=== PATIENT | female | born 1945 | race Caucasian/White ===

== ENCOUNTER 2021-07-21 18:43 | Observation (INO) | payer MEDICARE ==
[2021-07-21 20:35] VITALS: BMI 20.2
[2021-07-21] MEDS ORDERED: Morphine 2 MG/ML VIAL SLOW IVP PRN (21:12)
[2021-07-21] MEDS ORDERED: Piperacillin/Tazobactam 3.375 GM in Sodium Chloride 0.9% 100 ML IVPB SCH ×2 (21:15→22:00)
[2021-07-21] MEDS ORDERED: Morphine 4 MG/ML VIAL SLOW IVP PRN (21:23)
[2021-07-21] MEDS: Morphine 4 MG/ML VIAL SLOW IVP PRN (21:40)
[2021-07-21] MEDS: Lactated Ringer's 1,000 ML IV SCH (21:41)
[2021-07-21] MEDS ORDERED: traZODone HCl 50 MG TAB PO SCH (21:45)
[2021-07-22] MEDS: Morphine 4 MG/ML VIAL SLOW IVP PRN (04:07)
[2021-07-22 04:48] LABS: #Eosinphils 0.5 thou/uL (0.0-0.7); #Lymphocytes 1.6 thou/uL (1.20-3.40); #Monocytes 0.7 thou/uL (0.11-0.59); #Neutrophils 2.5 thou/uL (1.40-6.50); %Basophils 0.9 % (0.0-1.0); %Eosinophils 8.7 % (0.0-10.0); %Lymphocytes 30.2 % (21.0-51.0); %Monocytes 13.3 % (0.0-10.0); %Neutrophils 46.9 % (42.0-75.0); Hemoglobin 11.6 g/dL (12.0-16.0); Mean Corpuscular HGB CONC 33.9 g/dL (32.0-36.0); Mean Corpuscular Hemoglobin 31.1 pg (27.0-31.0); Mean Corpuscular Volume 91.9 fL (78.0-98.0); Mean Platelet Volume 7.1 fL (7.4-10.4); Platelet Count 194 thou/uL (130-400); RBC Distribution Width 11.3 % (11.5-14.5); Red Blood Cell (RBC) Count 3.73 mill/uL (4.20-5.40); White Blood Cell (WBC) Count 5.3 thou/uL (4.8-10.8)
[2021-07-22 05:18] LABS: Anion Gap 13 mmol/L (10-20); BUN (Urea Nitrogen) 12 mg/dL (9.8-20.1); Calc. Creatinine Clearance 54 mL/min (70-130); Calcium 8.8 mg/dL (7.8-10.44); Carbon Dioxide 23 mmol/L (23-31); Chloride 105 mmol/L (98-107); Glucose 79 mg/dL (83-110); Potassium 3.6 mmol/L (3.5-5.1); Sodium 137 mmol/L (136-145)
[2021-07-22] MEDS: Piperacillin/Tazobactam 3.375 GM in Sodium Chloride 0.9% 100 ML IVPB SCH ×3 (06:02→22:17)
[2021-07-22] MEDS: Lactated Ringer's 1,000 ML IV SCH ×3 (06:02→22:16)
[2021-07-22] MEDS: Famotidine/PF 20 mg/2ml Vial SLOW IVP SCH ×2 (08:12→20:30)
[2021-07-22] MEDS: diphenhydrAMINE 50 MG/ML VIAL IVP PRN (08:17)
[2021-07-22] MEDS ORDERED: FLU VACC QS2021-22(65YR UP)/PF 240 MCG/0.7 ML SYRINGE IM ONE (09:00)
[2021-07-22] MEDS ORDERED: Acetaminophen 325 MG TAB PO PRN (13:47)
[2021-07-22] MEDS: Ketorolac Tromethamine 30 MG/ML VIAL IVP SCH ×2 (14:39→20:30)
[2021-07-22] MEDS: traZODone HCl 50 MG TAB PO SCH (20:30)
[2021-07-22] MEDS: Ondansetron PF 4 MG/2 ML Vial IVP PRN (20:49)
[2021-07-23] MEDS: Ketorolac Tromethamine 30 MG/ML VIAL IVP SCH ×3 (04:50→21:20)
[2021-07-23] MEDS: Piperacillin/Tazobactam 3.375 GM in Sodium Chloride 0.9% 100 ML IVPB SCH (04:50)
[2021-07-23 05:07] LABS: #Basophils 0.1 thou/uL (0.0-0.2); #Eosinphils 0.4 thou/uL (0.0-0.7); #Lymphocytes 1.8 thou/uL (1.20-3.40); #Monocytes 0.5 thou/uL (0.11-0.59); #Neutrophils 1.7 thou/uL (1.40-6.50); %Basophils 1.5 % (0.0-1.0); %Eosinophils 9.5 % (0.0-10.0); %Lymphocytes 39.4 % (21.0-51.0); %Neutrophils 37.6 % (42.0-75.0); Hemoglobin 11.3 g/dL (12.0-16.0); Mean Corpuscular HGB CONC 33.8 g/dL (32.0-36.0); Mean Corpuscular Hemoglobin 31.3 pg (27.0-31.0); Mean Corpuscular Volume 92.8 fL (78.0-98.0); Mean Platelet Volume 6.8 fL (7.4-10.4); Platelet Count 194 thou/uL (130-400); RBC Distribution Width 11.2 % (11.5-14.5); Red Blood Cell (RBC) Count 3.62 mill/uL (4.20-5.40); White Blood Cell (WBC) Count 4.4 thou/uL (4.8-10.8)
[2021-07-23] MEDS: Famotidine/PF 20 mg/2ml Vial SLOW IVP SCH ×2 (07:50→21:00)
[2021-07-23] MEDS: Ondansetron PF 4 MG/2 ML Vial IVP PRN ×2 (07:50→13:16)
[2021-07-23] MEDS: Lactated Ringer's 1,000 ML IV SCH (10:44)
[2021-07-23] MEDS ORDERED: Bisacodyl 10 MG SUPP PR PRN (16:31)
[2021-07-23] MEDS: Amoxicillin/Potassium Clav 500 MG TAB PO SCH (20:59)
[2021-07-23] MEDS: traZODone HCl 50 MG TAB PO SCH (21:00)
[2021-07-24] MEDS: diphenhydrAMINE 50 MG/ML VIAL IVP PRN (03:23)
[2021-07-24] MEDS: Ketorolac Tromethamine 30 MG/ML VIAL IVP SCH (06:03)
[2021-07-24 08:00] VITALS: BP 172/81; TEMP 97.7
[2021-07-24] MEDS: Amoxicillin/Potassium Clav 500 MG TAB PO SCH (08:27)
[2021-07-24] MEDS: Famotidine/PF 20 mg/2ml Vial SLOW IVP SCH (08:27)
== END 2021-07-24 11:30 | disposition home or self-care (01) ==
LOC: INTOOBSV 19:45 → SURG A 19:45
PROVIDERS: ADMIT Surgery; ATTEND Surgery
DX: K52.9 Noninfective gastroenteritis and colitis, unspecified (principal); I10 Essential (primary) hypertension; G47.00 Insomnia, unspecified; Z79.899 Other long term (current) drug therapy; Z88.2 Allergy status to sulfonamides; Z96.653 Presence of artificial knee joint, bilateral
CPT/HCPCS: 36415; 80048; 82378; 85025; 96365; 96366; 96375; 96376; G0378; J1200; J1885; J2270; J2405; J2543; J3490; J7120; S0028

== ENCOUNTER 2021-12-02 10:07 | Emergency (ER) | payer MEDICARE | END 2021-12-02 11:45 | disposition home or self-care (01) | LOC: ERS 10:07 | DX: S06.0X9A Concussion with loss of consciousness of unspecified duration, initial encounter (principal); S16.1XXA Strain of muscle, fascia and tendon at neck level, initial encounter; W11.XXXA Fall on and from ladder, initial encounter | CPT/HCPCS: 70450; 72125 ==